=== PATIENT | male | born 1950 | race Two or more races ===

== ENCOUNTER → 2019-03-19 | Day surgery (SDC) | payer MEDICARE, OTHER ==
[2019-03-12 16:38] LABS: BASOPHILS % 0.7 % (0.0-1.0); EOSINOPHILS # (AUTO) 0.2 (0.0-0.4); EOSINOPHILS % 3.3 % (0.0-6.0); HEMATOCRIT 35.3 % (38.2-49.6); HEMOGLOBIN 11.9 g/dL (14.0-18.0); LYMPHOCYTES # (AUTO) 1.8 (1.0-3.2); LYMPHOCYTES % 30.6 % (18.0-39.1); MEAN CORPUSCULAR HEMOGLOBIN 28.7 pg (28-32); MEAN CORPUSCULAR HGB CONC 33.7 g/dL (31-35); MEAN CORPUSCULAR VOLUME 85.3 fL (81-99); MONOCYTES # (AUTO) 0.5 (0.2-0.8); MONOCYTES % 7.8 % (4.4-11.3); NEUTROPHILS # (AUTO) 3.4 (2.1-6.9); NEUTROPHILS % 57.1 % (38.7-80.0); PLATELET COUNT 210 x10e3/uL (140-360); RED BLOOD COUNT 4.14 x10e6/uL (4.3-5.7); RED CELL DISTRIBUTION WIDTH 13.1 % (11.7-14.4)
[~2019-03-19] MED LIST: AMLODIPINE BESYL5 MG PO; ATENOLOL50 MG PO; DOXAZOSIN MESYLA2 MG PO; FENTANYL CITRATE/PF 100MCG/2 ML INJ ONE; FINASTERIDE5 MG PO; HYDROCHLOROTH12.5 M1 PO; HYOSCYAMINE 0.125 MG TAB ONE; MIDAZOLAM HCL 2 MG/2 ML VIAL ONE; PROPOFOL IV EMULSION 10 MG/ML 50 ML VIAL ONE; TRILIPIX135 MG PO
--- OUTSIDE RECORDS SUMMARY | 2019-03-19 13:04 | XMS REPORT ---
Author Author [facility] Address Unknown Phone Unavailable Care Team Providers Care Prosthodontist/Educator Name Role Phone Unavailable Unavailable Problems This patient has no known problems. Allergies, Adverse Reactions, Alerts This patient has no known allergies or adverse reactions. Medications This patient has no known medications.
--- OUTSIDE RECORDS SUMMARY | 2019-03-19 13:04 | XMS REPORT | Summary of Care ---
Author Author [facility] - Health Organization [facility] - Health Address Unknown Phone Unavailable Care Team Providers Care Side Stapler Name Role Phone Helenradha Erasmo PCP Reason for Visit * Reason Comments Follow-up Encounter Details Care Team Description Date Type Department Nataly Hall PA-C [address] [place] [phone] Follow-up 11/08/2018 Telephone [facility]- [address] [phone] Allergies Not on Filedocumented as of this encounter (statuses as of 11/08/2018) Medications End Date Status Medication Sig Dispensed Refills Start Date Active finasteride 5 mg tablet TAKE 1 TABLET 3 BY MOUTH ONCE 9 DAILY Active tamsulosin HCl (FLOMAX Take by 0 ORAL) mouth. Active atenolol 25 mg tablet Take 25 mg by 0 mouth daily. Active AMLODIPINE BESYLATE, 5 mg. 0 BULK, MISC Active doxazosin 4 mg tablet Take 4 mg by 0 mouth daily. Active Fenofibric Acid Take by 0 (TRILIPIX) 135 mg capsule mouth. documented as of this encounter (statuses as of 11/08/2018) Active Problems No known active problemsdocumented as of this encounter (statuses as of 11/08/2018) Social History Date Tobacco Use Types Packs/Day Years Used Never Smoker Smokeless Tobacco: Never Used Sex Assigned at Date Recorded Not on file Industry Job Start Date Occupation Not on file Not on file Not on file Travel End Travel History Travel Start No recent travel history available. documented as of this encounter Last Filed Vital Signs Not on filedocumented in this encounter Plan of Treatment Health Maintenance Due Date Last Done Comments HEPATITIS C (HCV) SCREEN 1948 DTaP,Tdap,and Td Vaccines 1967 (1 - Tdap) COLONOSCOPY 1998 Zoster Recombinant 1998 Vaccine (SHINGRIX) (1 of 2) PNEUMOCOCCAL VACCINES 65+ 2013 (1 of 2 - PCV13) INFLUENZA VACCINE 12/16/2018 documented as of this encounter Results Not on filedocumented in this encounter Insurance Type Payer Benefit Subscriber ID Effective Phone Address Plan / Dates Group Medicare MEDICARE MEDICARE xxxxxxxxxxx 2013- [phone] Present [id number] [place] [id number] O [facility] [id number] 2013- Present documented as of this encounter
--- OUTSIDE RECORDS SUMMARY | 2019-03-19 13:04 | XMS REPORT | Summary of Care ---
Author Author [facility] - Health Organization [facility] - Health Address Unknown Phone Unavailable Care Team Providers Care Projector Booth Operator Name Role Phone Chapo Erasmo PCP Reason for Visit * Reason Comments Results Encounter Details Care Team Description Date Type Department Nataly Hall PA-C [address] [place] [phone] Results 11/11/2018 Telephone [facility]- [address] [phone] Allergies Not on Filedocumented as of this encounter (statuses as of 11/11/2018) Medications End Date Status Medication Sig Dispensed [...] as of this encounter (statuses as of 11/11/2018) Active Problems No known active problemsdocumented as of this encounter (statuses as of 11/11/2018) Social History Date Tobacco Use Types Packs/Day [...] Dates Group Medicare MEDICARE MEDICARE xxxxxxxxxxx 2013- [phone] [address] Present [id number] [place] [id number] O [facility] [id number] 2013- Present documented as of this encounter
[2019-03-19 17:55] VITALS: BP 132/78
--- NOTE | 2019-03-20 14:03 | Operative Report ---
DATE OF PROCEDURE: 03/19/2019 SURGEON: Adiel Marcos MD PROCEDURE: Colonoscopy with biopsies. INDICATIONS FOR COLONOSCOPY: Surveillance colonoscopy, personal history of colon polyps. MEDICATIONS: The patient was done under MAC, please see anesthesiologist's note. PROCEDURE IN DETAIL: With the patient in the left lateral decubitus position, a flexible fiberoptic Olympus colonoscope was inserted into the rectum with ease and advanced all the way to the cecum. The ileocecal valve appeared generous nodular and that was biopsied. The scope was then withdrawn slowly and diverticular disease was noted to involve the ascending colon. The transverse, descending, sigmoid, and rectum grossly appeared to be within normal limits. The scope was then retroflexed into the distal rectum and small internal hemorrhoids were noted, none of which was actively bleeding. The scope was then straightened out, it was subsequently withdrawn, and the patient tolerated the procedure well. IMPRESSION: 1. Ileocecal valve, nodular, generous, biopsied. 2. Diverticulosis. 3. Internal hemorrhoids, none actively bleeding. PLAN: Follow up histology. Continue high-fiber, low-fat diet. Continue high-fiber supplement. The patient might benefit from a followup colonoscopy in 5 years. Adiel Marcos MD [facility] [place][id number] cc: Erasmo Cowan MD
== END | disposition home or self-care (01) ==
LOC: OR 12:55
PROVIDERS: ATTEND Internal Medicine Gastroenterology
DX: Z09 Encounter for follow-up examination after completed treatment for conditions other than malignant neoplasm (principal); Z86.010 Personal history of colon polyps; K63.89 Other specified diseases of intestine; K57.30 Diverticulosis of large intestine without perforation or abscess without bleeding; I10 Essential (primary) hypertension; Z01.810 Encounter for preprocedural cardiovascular examination; Z01.812 Encounter for preprocedural laboratory examination; Z68.29 Body mass index [BMI] 29.0-29.9, adult
CPT/HCPCS: 36415; 45380; 85025; 88305; 93005; J2250; J2704; J3010; 45378

== ENCOUNTER → 2021-11-26 | Outpatient (CLI) | payer MEDICARE ==
[~2021-11-26] MED LIST changes: -FENTANYL CITRATE/PF 100MCG/2 ML INJ ONE; -HYOSCYAMINE 0.125 MG TAB ONE; -MIDAZOLAM HCL 2 MG/2 ML VIAL ONE; -PROPOFOL IV EMULSION 10 MG/ML 50 ML VIAL ONE
== END ==
LOC: US 10:41
PROVIDERS: ATTEND Family Medicine
DX: R94.4 Abnormal results of kidney function studies (principal)
CPT/HCPCS: 76770

== ENCOUNTER → 2023-04-28 | Day surgery (SDC) | payer MEDICARE ==
[2023-04-26 12:23] LABS: BASOPHILS % 0.6 % (0.0-1.0); EOSINOPHILS # (AUTO) 0.2 (0.0-0.4); EOSINOPHILS % 3.4 % (0.0-6.0); HEMATOCRIT 37.6 % (38.2-49.6); HEMOGLOBIN 12.3 g/dL (14.0-18.0); LYMPHOCYTES # (AUTO) 1.5 (1.0-3.2); LYMPHOCYTES % 30.1 % (18.0-39.1); MEAN CORPUSCULAR HEMOGLOBIN 27.8 pg (28-32); MEAN CORPUSCULAR HGB CONC 32.7 g/dL (31-35); MEAN CORPUSCULAR VOLUME 85.1 fL (81-99); MONOCYTES # (AUTO) 0.4 (0.2-0.8); MONOCYTES % 6.9 % (4.4-11.3); NEUTROPHILS % 58.8 % (38.7-80.0); PLATELET COUNT 208 x10e3/uL (140-360); RED BLOOD COUNT 4.42 x10e6/uL (4.3-5.7); WHITE BLOOD COUNT 5.05 x10e3/uL (4.8-10.8)
[~2023-04-28] MED LIST changes: +LACTATED RINGER'S 1,000 ML ONE; +LIDOCAINE HCL 2% LOCAL INJ 5 ML SDV VIAL INJ ONE; +ONE A DAY PO; +PROPOFOL IV EMULSION 50 ML IV ONE
[2023-04-28 09:52] VITALS: TEMP 97.1
[2023-04-28 10:20] VITALS: BP 132/74; PULSE 53; RESP 16; O2SAT 98
== END | disposition home or self-care (01) ==
LOC: OR 08:12
PROVIDERS: ATTEND Internal Medicine Gastroenterology
DX: D64.89 Other specified anemias (principal); Z86.010 Personal history of colon polyps; K57.30 Diverticulosis of large intestine without perforation or abscess without bleeding; K64.8 Other hemorrhoids; Z71.3 Dietary counseling and surveillance; N40.0 Benign prostatic hyperplasia without lower urinary tract symptoms; I10 Essential (primary) hypertension; Z71.89 Other specified counseling; E78.5 Hyperlipidemia, unspecified; Z01.810 Encounter for preprocedural cardiovascular examination; Z01.812 Encounter for preprocedural laboratory examination; Z79.899 Other long term (current) drug therapy; Z68.28 Body mass index [BMI] 28.0-28.9, adult; Z86.16 Personal history of COVID-19
CPT/HCPCS: 36415; 45378; 85025; 93005; J2001; J2704; J7121